=== PATIENT | female | born 2000 | race Two or more races ===

== ENCOUNTER 2018-11-06 01:30 | Emergency (ER) | payer MEDICAID ==
[~2018-11-06] VITALS: Ht 154.9 cm; Wt 54.4 kg
[2018-11-06] MEDS ORDERED: ZIPRASIDONE MESYLATE 20 MG VIAL IM ONE ×2 (01:57→02:00)
--- NOTE | 2018-11-06 02:01 | NUR ---
Lying on gurney with family at bedside parnoid screaming being uncoopertive with staff. Given Geodon 20 mg Im to right hip area.
--- NOTE | 2018-11-06 02:04 | NUR ---
Security at bedside for pt's safety/awol risk.
--- NOTE | 2018-11-06 02:12 | NUR ---
Called Beth Forrester RN PET eval for pt psych eval. Left voicemail.
[2018-11-06 02:25] LABS: BASOPHILS % (AUTO) 0.4 % (0.0-2.0); EOSINOPHILS # (AUTO) 0.1 K/uL (0.0-0.7); HEMATOCRIT 36.1 % (31.2-41.9); HEMOGLOBIN 12.5 g/dL (10.9-14.3); LYMPHOCYTES # (AUTO) 1.7 K/uL (20.0-40.0); LYMPHOCYTES % (AUTO) 20.2 % (20.5-74.5); MEAN CORPUSCULAR HEMOGLOBIN 29.2 uug (24.7-32.8); MEAN CORPUSCULAR HGB CONC 35 g/dL (32.3-35.6); MEAN CORPUSCULAR VOLUME 84.4 fL (75.5-95.3); MONOCYTES # (AUTO) 0.8 K/uL (2.0-10.0); MONOCYTES % (AUTO) 9.2 % (0-11); NEUTROPHILS # (AUTO) 5.8 K/uL (1.8-8.9); NEUTROPHILS % (AUTO) 69.2 % (31.5-64.5); PLATELET COUNT (AUTO) 296 K/uL (179-408); RED BLOOD CELL COUNT(AUTO) 4.27 MIL/uL (3.63-4.92); WHITE BLOOD COUNT (AUTO) 8.4 K/uL (3.8-11.8)
[2018-11-06 02:31] LABS: CARBON DIOXIDE 25 mmol/L (21-32); CHLORIDE 101 mmol/L (98-107); CREATININE 0.8 mg/dL (0.6-1.3); GLUCOSE 110 mg/dL (74-106); POTASSIUM 3.7 mmol/L (3.5-5.1); UREA NITROGEN, BLOOD 15 mg/dL (7-18)
[2018-11-06 02:37] LABS: ALANINE AMINOTRANSFERASE 21 U/L (14-59); ALKALINE PHOSPHATASE 51 U/L (50-136); ASPARTATE AMINOTRANSFERASE 19 U/L (15-37); BILIRUBIN,DIRECT 0.2 mg/dL (0.0-0.2); BILIRUBIN,TOTAL 0.7 mg/dL (0.2-1.0); TOTAL PROTEIN, SERUM 8.4 g/dL (6.4-8.2)
[2018-11-06] MEDS ORDERED: LORAZEPAM 2 MG/1 ML VIAL ONE (02:37)
[2018-11-06 02:45] LABS: ACETAMINOPHEN < 2.0 ug/mL (10-30)
[2018-11-06 02:48] LABS: ETHANOL < 3 MG/DL (0-0)
--- NOTE | 2018-11-06 02:59 | NUR ---
Lying on gurney less anxious, parnoid increase cooperative with staff and family members. Left message with [facility] [phone] for Psych eval/ [id number].
--- NOTE | 2018-11-06 03:14 | NUR ---
Beth SALINAS called back the ER for report. States," she will come in to evaluate patient."
[2018-11-06] MEDS ORDERED: LORAZEPAM 2 MG/1 ML VIAL IM ONE (03:15)
--- NOTE | 2018-11-06 04:00 | NUR ---
Beth Forrester RN arrived to ER for pt psych eval.
--- NOTE | 2018-11-06 04:18 | NUR ---
Remain on gurney resting comforably family at bedside talking with LANEY Medina.
--- NOTE | 2018-11-06 04:24 | NUR ---
Tele NSR 70's. remains resting comfortable.
--- NOTE | 2018-11-06 04:45 | NUR ---
O2 Sats 98% on R/A
--- NOTE | 2018-11-06 05:28 | NUR ---
Family members left facility. pt remains lying in bed resting comfortably.
--- NOTE | 2018-11-06 07:16 | NUR ---
Family return to see patient u/a collected. Rewsting comfortably in room
[2018-11-06 07:22] LABS: *URINE HCG, QUAL NEGATIVE (NEGATIVE)
[2018-11-06 07:23] LABS: *BILIRUBIN,URIN NEGATIVE (NEGATIVE); *BLOOD, URINE 1+ (NEGATIVE); *CLARITY,URINE CLOUDY (CLEAR); *COLOR,URINE YELLOW (YELLOW); *KETONES,URINE NEGATIVE (NEGATIVE); *UROBILINOGEN,URINE 0.2 E.U./dl (NORMAL); LEUKOCYTE ESTERASE ,URINE 2+ (NEGATIVE); NITRITE, URINE POSITIVE (NEGATIVE); PH,URINE 5.5 (5.0-8.0); UGLUCOSE NEGATIVE (NEGATIVE)
[2018-11-06 07:31] LABS: BACTERIA,URINE MANY /HPF (NONE SEEN); SQUAMOUS EPITHELIAL CELL,UR MODERATE /HPF (NONE SEEN); WBC,URINE TNTC /HPF (0-3)
[2018-11-06 07:32] LABS: MUCUS,URINE FEW /LPF (0-FEW)
[2018-11-06 07:35] LABS: *AMPHETAMINE, URINE NEGATIVE (NEGATIVE); *BARBITURATE, URINE NEGATIVE (NEGATIVE); *CANNABINOID, URINE POSITIVE (NEGATIVE); *COCCAINE, URINE NEGATIVE (NEGATIVE); *OPIATE, URINE NEGATIVE (NEGATIVE); *PHENCYCLIDINE SCREEN,URINE NEGATIVE (NEGATIVE)
--- NOTE | 2018-11-06 08:11 | NUR ---
Patient discharged to home in stable conditon. Written and verbal after care instructions given. Patient verbalizes understanding of instructions. pt left ER w/ steady gait accompained by family.
[2018-11-06 08:12] VITALS: BP 127/67
== END 2018-11-06 08:12 | disposition home or self-care (01) ==
LOC: ER 01:33
DX: F29 Unspecified psychosis not due to a substance or known physiological condition (principal); F20.0 Paranoid schizophrenia
CPT/HCPCS: 36415; 80048; 80076; 80307; 81000; 81001; 84439; 84443; 84703; 85025; 87077; 87086; 87186; 93005; 96372 ×2; 99284; G0480 ×2; G0481; J2060; J3486; A4663